=== PATIENT | female | born 1980 | race Caucasian/White ===

== ENCOUNTER 2018-03-12 08:46 | Day surgery (SDC) | payer OTHER ==
[2018-03-11 13:13] VITALS: BMI 27.4
[2018-03-12] MEDS ORDERED: ceFAZolin SODIUM 1 GM VIAL ONE ×4 (09:29→20:33)
[2018-03-12] MEDS ORDERED: HEPARIN NA (PORCINE) 5,000 UNITS/ML 1ML VIAL ONE (09:34)
[2018-03-12] MEDS ORDERED: HEPARIN NA (PORCINE) 5,000 UNITS/ML 1ML VIAL SQ ONE (10:30)
[2018-03-12] MEDS ORDERED: BUPIVACAINE HCL/PF 0.25% (2.5MG/ML) 10 ML VIAL ONE ×2 (11:02→11:20)
[2018-03-12] MEDS ORDERED: BUPIVACAINE HCL/PF 0.5% (5MG/ML) 10 ML VIAL ONE (11:02)
--- NOTE | 2018-03-12 11:10 | HP ---
History & Physical Update - Physical Physical: No Change - Assessment Assessment: No Change - Plan Plan: No Change (No change from clearance done on 02/08/18)
--- NOTE | 2018-03-12 11:11 | HP ---
Admitting History and Physical - Admission Chief Complaint: Umbilical hernia History Source: Patient Limitations to Obtaining History: No Limitations - Past Medical History ...LMP: 02/24/18 - Smoking History Smoking history: Never smoked - Alcohol/Substance Use Hx Alcohol Use: Yes (social) Home Medications - Allergies Allergies/Adverse Reactions: Allergies Allergy/AdvReac Type Severity Reaction Status Date / Time No Known Allergies Allergy Verified 03/11/18 13:08 - Home Medications Home Medications: Ambulatory Orders Acetaminophen [Tylenol -] 500 mg PO PRN 03/12/18 Aspirin/Acetaminophen/Caffeine [Excedrin Migraine Caplet] 1 each PO PRN Diphenhydramine [Benadryl -] 50 mg PO PRN 03/12/18 Levocetirizine Dihydrochloride [Xyzal] 5 mg PO DAILY 03/12/18 Family Disease History - Family Disease History Family History: Denies Review of Systems - Review of Systems Constitutional: denies: Chills, Fever Neck: reports: No Symptoms Cardiovascular: reports: No Symptoms Respiratory: reports: No Symptoms Gastrointestinal: reports: No Symptoms Pain Intensity: 0 Physical Examination Vital Signs: Vital Signs Temperature 98.3 F 03/12/18 09:14 Pulse Rate 81 03/12/18 09:14 Respiratory Rate 20 03/12/18 09:14 Blood Pressure 111/80 03/12/18 09:14 O2 Sat by Pulse Oximetry (%) 99 03/12/18 09:17 Constitutional: Yes: Calm Neck: Yes: WNL Cardiovascular: Yes: WNL Respiratory: Yes: Regular Gastrointestinal: Yes: Soft, Hernia (Umbilical) Neurological: Yes: Alert, Oriented Problem List - Problems (1) Umbilical hernia Code(s): K42.9 - UMBILICAL HERNIA WITHOUT OBSTRUCTION OR GANGRENE Qualifiers: Obstruction and gangrene presence: without obstruction or gangrene Qualified Code(s): K42.9 - Umbilical hernia without obstruction or gangrene Assessment/Plan Umbilical hernia Robotic repair with possible mesh in conjunction with abdominoplasty by Plastic Surgery
[2018-03-12] MEDS ORDERED: LIDOCAINE HCL/PF 2% SDV 5ML VIAL ONE (11:15)
[2018-03-12] MEDS ORDERED: PROPOFOL 20 ML ONE ×2 (11:15)
[2018-03-12] MEDS ORDERED: SUCCINYLCHOLINE CHLORIDE 200 MG/10 ML VIAL ONE ×2 (11:15→11:35)
[2018-03-12] MEDS ORDERED: DEXAMETHASONE SOD PHOSPHATE 4 MG/1 ML VIAL ONE (11:15)
[2018-03-12] MEDS ORDERED: fentaNYL CITRATE 250 MCG/5 ML VIAL ONE (11:15)
[2018-03-12] MEDS ORDERED: ROCURONIUM BROMIDE 50 MG/5 ML VIAL ONE ×2 (11:15)
[2018-03-12] MEDS ORDERED: NEOSTIGMINE METHYLSULFATE 0.5 MG/ML - 10 ML MDV ONE (11:16)
[2018-03-12] MEDS ORDERED: MIDAZOLAM HCL 2 MG/2 ML SINGLE DOSE VIAL ONE ×2 (11:16)
[2018-03-12] MEDS ORDERED: EPINEPHrine/PF 1 MG/1 ML (1:1,000) AMPULE ONE ×2 (12:10→14:36)
[2018-03-12] MEDS ORDERED: ACETAMINOPHEN INJECTION 100 ML IVPB ONE (13:00)
--- NOTE | 2018-03-12 13:03 | OP ---
Operative Note - Note: Operative Date: 03/12/18 Pre-Operative Diagnosis: Umbilical hernia Operation: Robotic umbilical hernia repair Post-Operative Diagnosis: Same as Pre-op Surgeon: Caleb Porter Water Project Manager: Vladislav Osorio Anesthesia: General Specimens Removed: None Estimated Blood Loss (mls): 5 Operative Report Dictated: Yes
--- NOTE | 2018-03-12 14:28 | OP ---
DATE OF OPERATION: 03/12/2018 SURGEON: Yen Porter MD LAW ENFORCEMENT INSTRUCTOR: NETTE Milan PREOPERATIVE DIAGNOSIS: Umbilical hernia. POSTOPERATIVE DIAGNOSIS: Umbilical hernia. PROCEDURE: Robotic repair of umbilical hernia. ESTIMATED BLOOD LOSS: 5 mL. DRAINS: None. ANESTHESIA: GET. REASON FOR PROCEDURE: This is a 37-year-old female who was noted to have an umbilical hernia while undergoing evaluation for abdominoplasty by Dr. Gustavo Eldridge in Plastic Surgery. Because of the umbilical hernia, she was offered different options, and after describing different options with both her and Dr. Gustavo Eldridge, the best course of action was decided to be a robotic approach to her umbilical hernia repair. The risks and benefits of the procedure were explained. This included bleeding, infection, recurrence of hernia, MS, DVT, PE, injury to surrounding structures including bowel, colon, and any other abdominal structures. She was explained that she needed to decrease lifting heavy objects or using her abdominal core to decrease the risk of recurrence of her hernia. She understood the risks and benefits and signed informed consent. DESCRIPTION OF PROCEDURE: The patient was placed supine on the operating room table on top of a shaffer bag. The abdomen was prepped and draped in the usual sterile fashion. Time-out was performed. An incision was made in the left upper quadrant and pneumoperitoneum established with a Veress needle. Subsequently, the Veress needle was removed and an 8-mm robotic trocar placed under direct visualization with laparoscope. Two further 8-mm trocars were placed in the left lateral abdominal wall and the left lower quadrant. The patient was placed in slight right lateral decubitus position. The robot was brought over the field and docked. Dissection was performed at the console. The area of the umbilical hernia was noted and dissected using scissors. The fascia was cleared, and a small 1-cm hernia refill was noted to the umbilicus. This was then closed using a 0 V-Lock absorbable suture in multiple suture bites. The flap that was created to connect the fascia was then closed using the 0 V-Lock suture as well. Hemostasis was noted. The patient tolerated the procedure well. The remainder of the abdominoplasty was then continued by Dr. Gustavo Eldridge. YEN PORTER M.D. [facility]/[id number]
[2018-03-12] MEDS ORDERED: BACITRACIN 15 GM TUBE TOPICAL OINTMENT ONE (15:32)
[2018-03-12] MEDS ORDERED: ONDANSETRON 4 MG/2 ML VIAL IVPUSH PRN (17:20)
[2018-03-12] MEDS ORDERED: PROMETHAZINE HCL 25 MG/1 ML VIAL IVPB PRN (17:20)
[2018-03-12] MEDS ORDERED: LACTATED RINGERS SOLUTION 1,000 ML IV SCH (17:30)
[2018-03-12] MEDS ORDERED: PROMETHAZINE HCL 25 MG/1 ML VIAL ONE (17:37)
[2018-03-12] MEDS ORDERED: ONDANSETRON 4 MG/2 ML VIAL IVPB PRN (19:52)
--- NOTE | 2018-03-12 20:02 | OP ---
Operative Note - Note: Operative Date: 03/12/18 Pre-Operative Diagnosis: abdominal adiposity Operation: lipoabdominoplasty Post-Operative Diagnosis: Same as Pre-op Surgeon: Gustavo Eldridge Combustion Analyst: Vladislav Osorio Anesthesia: General
--- NOTE | 2018-03-12 20:03 | PN ---
Progress Note (short form) - Note Progress Note: patient evaluated post op. NV in tact, all tissues viable, with no collections , pain is well controlled. urinated. VIVEK's thin and functioning. OK for discharge in AM after seen by PA and meets criteria.
[2018-03-12] MEDS ORDERED: DEXTROSE 5%-WATER - 50 ML IVPB ONE (20:33)
[2018-03-12] MEDS: LACTATED RINGERS SOLUTION 1,000 ML IV SCH (20:43)
[2018-03-12] MEDS: CEFAZOLIN 1 GM in DEXTROSE 5%-WATER - 50 ML IVPB SCH (20:45)
[2018-03-12] MEDS ORDERED: diphenhydrAMINE HCL 25 MG CAPSULE (FP) PO ONE (20:51)
[2018-03-12] MEDS: MORPHINE SULFATE 2 MG/ML VIAL IVPUSH PRN (20:55)
[2018-03-12] MEDS ORDERED: diphenhydrAMINE HCL 50 MG CAPSULE PO PRN (22:00)
--- NOTE | 2018-03-13 01:13 | OP ---
DATE OF OPERATION: 03/12/2018 PROCEDURE: Lipoabdominoplasty. PREOPERATIVE DIAGNOSIS: Abdominal adiposity and skin excess. POSTOPERATIVE DIAGNOSIS: Abdominal adiposity and skin excess. ATTENDING SURGEON: Gustavo Eldridge MD PATIENT ASSISTANT: NETTE Milan The procedure is performed in combination with a laparoscopic robotic umbilical hernia repair performed by Dr. Caleb Porter. That procedure will be dictated separately by Dr. Porter. The patient was marked in the holding area, awake, and aware of all incisions and resulting scars. Patient specifically asked for removal of the abdominal tattoo. It was explained to the patient that the entirety of the tattoo was unlikely to be removed, but I will make every effort to remove as much of it as possible. All risks, benefits, and alternatives are discussed with the patient, not only today but also preoperatively in the office. She is given 5000 units of subcutaneous heparin preoperatively. DANNI hose and sequential compression stockings were applied preoperatively. Brought to the operating room and placed in the supine position. Patient is initially prepped and draped in position by Dr. Caleb Porter. That portion of the procedure will be dictated separately. After which, the drapes were removed. She was reprepped and draped. A beanbag that was placed by Dr. Porter for his portion of the procedure was removed prior to my procedure. A Ward catheter was placed, which was removed at the end of my procedure. After being reprepped and draped, all pressure points were carefully padded. Position was carefully checked by surgical and anesthesia teams. The new timeout was call. Patient, procedure, site, and sides were verified. An incision was made along the inferior pannicular crease and dissection was carried down to the level of the abdominal wall fascia. Dissection then carried along the abdominal wall fascia to the level of the umbilicus. The umbilicus was then circumcised and developed and dissected on a wide fiber fatty stalk. The belly button was able to be identified as bleeding robustly without any evidence of ischemia. Cephalad to the umbilicus, only a midline elevation is performed in order to accommodate a plication. There was no superolateral undermining of tissue. This was performed in order to preserve the perforating blood supply for purposes of abdominal liposuction. The plication was then performed in the midline both above and below the umbilicus, first with a series of interrupted buried [id number] number 1 Prolene sutures followed by a running locking number 1 Prolene suture. Each was done above and below the umbilicus. The endpoint was smooth, even tension across the abdomen. Wide berth was given for the umbilicus. The umbilicus was converted to a Star Trek pattern. The abdominoplasty flap was then infiltrated with 1 L of infiltration fluid using a standard infiltration system. The infiltration fluid was 1 L of normal saline with 1 ampule of 1:100,000 epinephrine. A full 20 minutes was given for this to work while the patient was brought to a flexed position and the abdominoplasty flap is measured for excision. This was performed after tailor tacking the flap. The tip of the flap was pink and viable. The edges are stapled in position and then liposuction was performed with a combination of 4-mm cannula to the abdominoplasty flap and 4-mm and 5-mm cannulas to bilateral flanks. The total liposuction aspirate is 300 mL from each flank and an additional 600 mL from the abdominoplasty flap. End point is smooth, even contour. There is no evidence of flap ischemia. The position of the umbilicus is marked. A Star Trek pattern excision of skin is performed and the umbilicus is translocated. The inferior flap of the abdominoplasty pattern is inset into the 6 o'clock notch on the umbilicus. The umbilicus was then inset with a series of interrupted 3-0 Monocryl buried deep dermal suture followed by a running 4-0 nylon suture. Two size 10 flat VIVEK drains were brought out through the lateral extent of the incisions and secured with 2-0 silk drain suture. At this point, the flap is lifted once again for assessment. The hemostasis was meticulously achieved. The fascia was injected with 30 mL of 0.25% Marcaine plain. The incisions in the fascia that were made by Dr. Porter are closed with a series of interrupted [id number] number 1 Prolene sutures. It is determined that a strip of skin along mons pubis is able to be excised in addition to lower the scar and excise the preexisting section scar. This was able to be done without any undue tension for closure. The closure was then performed with a series of interrupted superficial fascial system to Ata layer with 0 Vicryl suture, buried, followed by a series of interrupted buried deep dermal 3-0 Monocryl suture, followed by a running 3-0 V-Loc 90-day Monocryl suture. The remaining port site for Dr. Porter's hernia repair is then closed with a buried deep dermal 3-0 Monocryl suture followed by a series of interrupted 6-0 nylon suture. All incisions were dressed with half-inch Steri-Strips, 4 x 4 gauge, ABD gauze, and an abdominal binder. Patient awoken from anesthesia. Drains were placed to bulb suction. Transferred to recovery in a flexed position. Extubation was without any bucking or complications. GUSTAVO ELDRIDGE M.D. [id number]
[2018-03-13] MEDS ORDERED: DEXTROSE 5%-WATER - 50 ML IVPB ONE ×4 (01:39→19:59)
[2018-03-13] MEDS ORDERED: ceFAZolin SODIUM 1 GM VIAL ONE ×4 (01:39→19:59)
[2018-03-13] MEDS: oxyCODONE HCL 5 MG TABLET PO PRN ×3 (01:43→11:58)
[2018-03-13] MEDS: CEFAZOLIN 1 GM in DEXTROSE 5%-WATER - 50 ML IVPB SCH ×4 (01:59→22:46)
[2018-03-13] MEDS ORDERED: diphenhydrAMINE HCL 25 MG CAPSULE (FP) PO PRN (02:52)
[2018-03-13] MEDS: LACTATED RINGERS SOLUTION 1,000 ML IV SCH (06:16)
[2018-03-13] MEDS: HEPARIN NA (PORCINE) 5,000 UNITS/ML 1ML VIAL SQ SCH ×3 (07:52→22:14)
--- NOTE | 2018-03-13 10:52 | PN ---
Progress Note (short form) - Note Progress Note: surgery POD#1 lipoabdominoplasty and hernia repair seen and examined at bedside with no complaints. Patient states she walked to the bathroom and urinated with no problem. She is tolerating her diet and her pain in controlled. She denies any CP, SOB, N/V, fever or chills. Vital Signs Temp 98.5 F 03/13/18 05:50 Pulse 90 03/13/18 05:50 Resp 20 03/13/18 05:50 BP 123/76 03/13/18 05:50 Pulse Ox 100 03/12/18 22:00 Intake & Output 03/12/18 03/12/18 03/13/18 11:59 23:59 11:59 Intake Total 2200 600 1000 Output Total 925 150 Balance 2200 -325 850 Weight 170 lb Intake: IV 2200 300 900 Lactated Ringers Solution 900 1,000 ml @ 75 mls/hr IV ASDIR TRICIA Rx#:[id number] IVPB 100 Oral 300 Output: Drainage 175 150 VIVEK DRAIN ONE 40 80 VIVEK DRAIN TWO 80 70 Urine 700 Void 600 Estimated Blood Loss 50 Other: Voiding Method Toilet Bowel Movement No Height 5 ft 6 in Body Mass Index (BMI) 27.4 Weight Measurement Method Estimated by Patient PE: A&Ox3, NAD unlabored resp on RA ABD: Soft, ND with diffuse ttp throughout appropriate to status. Incisions with steri strips c/d/i with surrounding tissue intact and no tracking erythema, edema, collection on d/c, b/l Drains in good position, secure with ss d/c. Dressings and abdominal binder reapplied. Problem List - Problems (1) Umbilical hernia Assessment/Plan: POD #1 umbilical hernia repair, abdominoplasty, liposuction doing well. 1) DVT prophylaxis as outlined in D/c instructions 2) Daily drain care as discussed 3) OOb with abd binder as tolerated 4) F/u with Dr Eldridge as scheduled Evaluation and plan discussed with Dr Eldridge Code(s): K42.9 - UMBILICAL HERNIA WITHOUT OBSTRUCTION OR GANGRENE Qualifiers: Obstruction and gangrene presence: without obstruction or gangrene Qualified Code(s): K42.9 - Umbilical hernia without obstruction or gangrene
[2018-03-13] MEDS: MORPHINE SULFATE 2 MG/ML VIAL IVPUSH PRN ×2 (12:56→16:46)
[2018-03-13] MEDS ORDERED: diazePAM 2 MG TABLET PO PRN (13:45)
--- NOTE | 2018-03-13 13:49 | PN ---
Progress Note (short form) - Note Progress Note: Patient developed sudden onset of left leg pain. She denies any Chest pain, n/v or SOB. PE: Tearful 2/2 anxiety and pain VSS unlabored resp on RA Left LE compartments soft, supple with focal TTP over popliteal fossa, no erythema or edema, +2 DP and PT pulses Right LE compartment soft, supple and non-tender, no erythema or edema, +2 DP and PT pulses. A/P sudden onset left LE pain POD # 1 1) Stat dopplers b/l LE, R/o DVT 2) Valium added for anxiety 3) Surgery to follow Evaluation and plan discussed with Dr Eldridge. Problem List - Problems (1) Umbilical hernia Code(s): K42.9 - UMBILICAL HERNIA WITHOUT OBSTRUCTION OR GANGRENE Qualifiers: Obstruction and gangrene presence: without obstruction or gangrene Qualified Code(s): K42.9 - Umbilical hernia without obstruction or gangrene
--- NOTE | 2018-03-13 14:04 | SURG ---
Surgery Signal Helper Note Signal Helper: Vladislav Osorio PA-C Date of Service: 03/13/18 Diagnosis: Umbilical hernia Procedure: Robotic umbilical hernia repair I was present for the entirety of the operative procedure. For further detail, please refer to operative report. Visit type - Case Type Case Type: Scheduled - New patient This patient is new to me today: Yes Date on this admission: 03/13/18
--- NOTE | 2018-03-13 14:57 | PN ---
Progress Note (short form) - Note Progress Note: Anesthesia postop note 37 y/o F s/p GA for hernia repair robotic and abdominoplasty/liposuction POD#1, vss, aaox3, just back from ultrasound to r/o dvt( negative for dvt) No anesthesia complications.
--- NOTE | 2018-03-13 15:39 | PN ---
Progress Note (short form) - Note Progress Note: POD 1 Robotic umbilical hernia repair Pain controlled On diet Followed by Dr Eldridge for concurrent Abdominoplasty AVSS Abd soft Discharge planning per Dr Eldridge No lifting more than 10 pounds x 6 weeks Problem List - Problems (1) Umbilical hernia Code(s): K42.9 - UMBILICAL HERNIA WITHOUT OBSTRUCTION OR GANGRENE Qualifiers: Obstruction and gangrene presence: without obstruction or gangrene Qualified Code(s): K42.9 - Umbilical hernia without obstruction or gangrene
[2018-03-13] MEDS ORDERED: oxyCODONE HCL 5 MG TABLET PO PRN (16:57)
[2018-03-13] MEDS ORDERED: LACTATED RINGERS SOLUTION 1,000 ML IV SCH (16:57)
[2018-03-13] MEDS ORDERED: ACETAMINOPHEN 325 MG TABLET (FP) PO ONE (21:25)
--- NOTE | 2018-03-13 21:32 | PN ---
Progress Note (short form) - Note Progress Note: POD 1 s/p hernia repair and abdominoplasty. Ambulating, receiving SQ heparin, cisco diet, good UOP Was planned for discharge this morning, but later began complaining of leg pain and numbness which has since resolved entirely. BLE duplex was negative. On my evaluation tonight she is complaining of mid epigastric pain and states that she is slightly short of breath. She has bee placed on O2 by nurse. she is slightly tachycardic to 110's and with low grade fever to 100.8. On exam, she is comfortable in bed, without evidence of bleed or collection. VIVEK 's are working with thin serous output. Abdomen is appropriately tender Despite negative duplex, I will order state CTA for r/o PE. Encourage incentive spirometer, ambulation and SCD while in bed.
[2018-03-13 23:01] LABS: ANION GAP 9 MMOL/L (8-16); BLOOD UREA NITROGEN 7 mg/dL (7-18); CALCIUM 7.5 mg/dL (8.5-10.1); CHLORIDE 103 mmol/L (98-107); CO2 27 mmol/L (21-32); CREATININE 0.6 mg/dL (0.55-1.3); GLUCOSE,RANDOM 107 mg/dL (74-106); POTASSIUM 3.6 mmol/L (3.5-5.1); SODIUM 139 mmol/L (136-145)
[2018-03-14] MEDS: MORPHINE SULFATE 2 MG/ML VIAL IVPUSH PRN (00:54)
[2018-03-14] MEDS ORDERED: DEXTROSE 5%-WATER - 50 ML IVPB ONE ×2 (04:08→08:24)
[2018-03-14] MEDS ORDERED: ceFAZolin SODIUM 1 GM VIAL ONE ×2 (04:08→08:24)
[2018-03-14] MEDS: CEFAZOLIN 1 GM in DEXTROSE 5%-WATER - 50 ML IVPB SCH ×2 (04:10→08:53)
--- NOTE | 2018-03-14 08:14 | PN ---
Progress Note (short form) - Note Progress Note: 37F s/p abdominalplasty and ventral hernia repair, pt seen at bedside. Pt spiked a fever yesterday and was complaining of some chest pain and SOB last night so had CTA of the chest that was negative for PE, showed actelectasis. Pt states that she is feeling well this morning and would like to go home. Afebrile overnight. Denies n/v. Last Vital Signs Temp Pulse Resp BP Pulse Ox 98.9 F 94 H 20 120/73 98 03/14/18 06:00 03/14/18 06:00 03/14/18 06:00 03/14/18 06:00 03/13/18 21:00 CBC, BMP 03/13/18 22:00 PE: Gen: A&O x3 Resp: breathing comfortably ABd: soft, nondistended, mild tenderness. Incisions are clean and dry, serous drainage in drains. Drain 1 output: 10ml Drain 2 output: 30ml Problem List - Problems (1) Umbilical hernia Assessment/Plan: Plan -pt appears to be doing well, fever most likely due to actelectasis -emphasize incentive spirometry -OOB/ambulate Will discuss with Dr. Eldridge, possible discharge later today. Code(s): K42.9 - UMBILICAL HERNIA WITHOUT OBSTRUCTION OR GANGRENE Qualifiers: Obstruction and gangrene presence: without obstruction or gangrene Qualified Code(s): K42.9 - Umbilical hernia without obstruction or gangrene
--- NOTE | 2018-03-14 09:42 | PN ---
Progress Note (short form) - Note Progress Note: Re-evaluated this AM: Afebrile, tachycardia and anxiety resolved. No complaints, Sa02 nl CTA-neg OK for discharge with instructions. Will start eliquis tonight f/u 1 week
[2018-03-14] MEDS: HEPARIN NA (PORCINE) 5,000 UNITS/ML 1ML VIAL SQ SCH (09:58)
--- NOTE | 2018-03-14 10:12 | PN ---
Progress Note (short form) - Note Progress Note: Had shortness of breath yesterday CTA ordered: no evidence of PE; + Consolidation/atelectasis Breathing improved today Pain controlled On diet Abd soft Encouraged deep breathing/incentive spirometer Discharge planning Problem List - Problems (1) Umbilical hernia Code(s): K42.9 - UMBILICAL HERNIA WITHOUT OBSTRUCTION OR GANGRENE Qualifiers: Obstruction and gangrene presence: without obstruction or gangrene Qualified Code(s): K42.9 - Umbilical hernia without obstruction or gangrene
[2018-03-14 10:50] VITALS: BP 115/58; PULSE 97; TEMP 98.8
--- NOTE | 2018-03-15 15:35 | PATH ---
Surgical Pathology Report Patient Name: APOLONIA RENEE [facility]. Rec. #: [id number] /Age/Gender: 1980 (Age: 37) / F Account: [id number] Location: AMBULATORY SURG Taken: 03/12/2018 Received: 03/13/2018 Reported: 03/15/2018 Physicians: Dilip Michel Specimen(s) Received ABDOMINAL SKIN AND TISSUE Clinical History Umbilical hernia Final Diagnosis ABDOMINAL SKIN AND TISSUE, UMBILICAL HERNIA REPAIR AND ABDOMINOPLASTY: BENIGN SKIN AND MATURE FIBROADIPOSE TISSUE. Electronically Signed Brianna Ortiz M.D. Gross Description Received in formalin labeled "abdominal skin and tissue," is a 1370 g aggregate of 3 unoriented portions of skin with underlying soft tissue. The skin excisions range from 14.0 x 1.8 x 1.8 cm to 23.0 x 14.5 x 3.5 cm. The two larger portions of skin display multiple blue tattoo markings. The largest portion of skin displays 4 vaz metallic kylie. Sectioning of the underlying soft tissue reveals unremarkable yellow, lobulated adipose tissue. Unemployment Claims Adjudicator sections are submitted in one cassette. 03/13/201803/13/2018
== END 2018-03-14 12:10 | disposition home or self-care (01) ==
LOC: JASUSAT 08:46 → J6S 19:50 → JASUSAT 03-14 12:10
PROVIDERS: ATTEND Surgery
PROC: 0J083ZZ Alteration of Abdomen Subcutaneous Tissue and Fascia, Percutaneous Approach (ICD-10-PCS; 2018-03-12)
PROC: 0J080ZZ Alteration of Abdomen Subcutaneous Tissue and Fascia, Open Approach (ICD-10-PCS; 2018-03-12)
PROC: 0WQF4ZZ Repair Abdominal Wall, Percutaneous Endoscopic Approach (ICD-10-PCS; principal; 2018-03-12 12:02)
PROC: 8E0W4CZ Robotic Assisted Procedure of Trunk Region, Percutaneous Endoscopic Approach (ICD-10-PCS; 2018-03-12 12:02)
DX: K42.9 Umbilical hernia without obstruction or gangrene (principal); E65 Localized adiposity; L98.7 Excessive and redundant skin and subcutaneous tissue
CPT/HCPCS: 15830; 15847; 15877; 49652; S2900; 36415; 71275-TC; 80048; 84703; 86850; 86900; 86901; 88302-TC; 93970-TC; 94760; J0131; J1644